=== PATIENT | female | born 1985 | race Caucasian/White ===

== ENCOUNTER 2021-10-29 23:16 | Emergency (ER) | payer SELFPAY ==
[~2021-10-29] VITALS: Ht 170.2 cm; Wt 63.5 kg
--- NOTE | 2021-10-29 23:54 | NUR ---
pt c/o neck pain after riding ride at [employer]. Dr. Mckeon at bedside for MSE.
[2021-10-30] MEDS ORDERED: OXYCODONE/APAP 5-325 MG TABLET PO ONE
[2021-10-30] MEDS ORDERED: OXYCODONE/APAP 5-325 MG TABLET ONE (00:03)
[2021-10-30] MEDS ORDERED: OXYC-128 PO (00:27)
[2021-10-30 00:53] VITALS: BP 110/78
--- NOTE | 2021-10-30 00:53 | NUR ---
Patient discharged to home in stable condition. Written and verbal after care instructions given. Patient verbalizes understanding of instructions. Stressed follow up or return to ER for worsening s/s.
== END 2021-10-30 00:54 | disposition home or self-care (01) ==
LOC: ER 23:16
DX: S16.1XXA Strain of muscle, fascia and tendon at neck level, initial encounter (principal); S39.012A Strain of muscle, fascia and tendon of lower back, initial encounter; X58.XXXA Exposure to other specified factors, initial encounter; Y93.I1 Activity, roller coaster riding; Y92.831 Amusement park as the place of occurrence of the external cause; F17.210 Nicotine dependence, cigarettes, uncomplicated
CPT/HCPCS: 72100; A4663